=== PATIENT | female | born 1985 | race Caucasian/White ===

== ENCOUNTER 2017-05-04 09:28 | Emergency (ER) | payer SELFPAY ==
[~2017-05-04] VITALS: Ht 175.3 cm; Wt 77.3 kg
[~2017-05-04 09:28] MED LIST: DOCU-41 PO; HYDR-4003 PO; IBUP-1827 PO; PREN1TAB25 PO
[2017-05-04 09:31] VITALS: BP 108/73; PULSE 96; RESP 18; O2SAT 98
[2017-05-04 10:07] LABS: BASOPHILS % (AUTO) 0.2 % (0-3); EOSINOPHILS % (AUTO) 2.7 % (0-5); MONOCYTES % (AUTO) 9.2 % (4-12); Mean Corpuscular Hemoglobin 27.1 pg (27.0-35.0); Mean Corpuscular Volume 85.4 fL (81-100); NEUTROPHILS % (AUTO) 64.9 % (40-74); Platelet Count 274 bil/L (150-400)
--- NOTE | 2017-05-04 10:20 | ED.REPORT ---
HPI-Abd Pain F Under 40 Date of Service May 04, 2017 ED Provider: Kory Gil MD Patient is a 31 year old female who presents to the ED complaining of a headache onset this morning. Associated symptoms include nausea, vomiting, diarrhea, dizziness, generalized weakness, malaise and a subjective fever. She denies abdominal pain, cough, congestion, hematochezia or hematemesis. The patient reports that she has not been on any recent antibiotics or around anyone else who is sick. She states that she has been experiencing migraines but that this does not feel the same as her normal headache. Patient has never experienced this before. The patient states that she did eat chicken last night. Nursing Notes Stated Complaint: DIZZINESS/ VOMITING Chief Complaint: Female Abdominal Pain Nursing Notes Reviewed: Yes Allergies: Coded Allergies: No Known Drug Allergies (Verified Allergy, Unknown, 06/02/14) Scheduled Docusate Sodium (Colace) 100 Mg Capsule 100 MG PO BID Vit#96/Ferrous Fum/FA ( Tablet) 1 Each Tablet 1 EACH PO DAILY Scheduled PRN Hydrocodone-Acetaminophen 5-325 mg (Hydrocodone-Acetaminophen 5-325 mg) 1 Each Tablet 1-2 TABLET PO Q4H PRN PRN For Pain Ibuprofen (Ibuprofen) 600 Mg Tablet 600 MG PO Q6H PRN PRN For Mild Pain Ondansetron ODT (Zofran ODT) 4 Mg Tablet 4 MG PO Q4H PRN PRN For Nausea General Time Seen by MD: 09:50 Chief Complaint Other (headache) Hx Obtained From: Patient Arrived By: Walk-in Sudden in Onset?: Yes Onset Occurred: 1 - 4 hours ago Symptom Duration: Since onset Severity: Current: Moderate Similar Sx Previous: No Past Medical History Past Medical History pancreatitis cholelithiasis Smoking History Never Smoker Social History Other Social History: Good social support Ambulatory Status Independent Review of Systems Constitutional: Reports: Fever (subjective), Malaise, Weakness - generalized, Denies: Chills Respiratory: Denies: Non-productive cough, Shortness of breath GI: Reports: Diarrhea, Nausea, Vomiting, Denies: Abdominal pain, Hematemesis, Hematochezia Female: Denies: Complete sys rev & neg: except as marked. Ears / Nose / Throat: Denies: Nasal congestion Skin: Denies Itching, Denies Rash Neurologic: Reports: Dizziness, Headache Physical Exam Initial Vital Signs Vital Signs (First) Date Time Temp Pulse Resp B/P Pulse Ox O2 Delivery O2 Flow Rate FiO2 05/04/17 09:31 36.5 96 18 108/73 98 05/04/17 13:10 Room Air Initial VS: Reviewed General/Constitutional: Awake, Alert Behavior: Positive: Tearful Respiratory / Chest: Atraumatic, Breath sounds NL, Breath sounds = bilat, No respiratory distress Cardiovascular: Heart rate NL, Regular rhythm, Heart sounds NL, No murmurs Abdomen: Atraumatic, Soft, Non-tender, BS normoactive Back: Atraumatic, No CVA tenderness Head / Eyes: Atraumatic, Normocephalic, PERRL, EOMI Skin: Atraumatic, Color NL, No rash, Warm, Dry Neurologic: Oriented X3, Speech NL, No motor deficits, No sensory deficits Upper Extremity / MS: Atraumatic, Full range of motion Psychiatric: Affect NL, Mood NL Interpretation & Diagnostics Lab Results Interpretation Result Diagram: 05/04/17 1000 05/04/17 1000 Test 05/04/17 10:00 05/04/17 10:15 05/04/17 13:48 White Blood Count 6.6th/mm3 (3.8-10.1) Red Blood Count 5.01mil/mm3 (3.90-5.20) Hemoglobin 13.6g/dL (12.0-15.6) Hematocrit 42.8% (35.0-46.0) Mean Corpuscular Volume 85.4fL (81-100) Mean Corpuscular Hemoglobin 27.1pg (27.0-35.0) Mean Corpuscular Hemoglobin Concent 31.8% (32.0-37.0) Red Cell Distribution Width 14.3% (12.3-15.4) Platelet Count 274bil/L (150-400) Neutrophils (%) (Auto) 64.9% (40-74) Lymphocytes (%) (Auto) 22.7% (14-46) Monocytes (%) (Auto) 9.2% (4-12) Eosinophils (%) (Auto) 2.7% (0-5) Basophils (%) (Auto) 0.2% (0-3) Sodium Level 137mEq/L (134-144) Potassium Level 4.3mEq/L (3.5-5.2) Chloride Level 103mEq/L (97-108) Carbon Dioxide Level 22mmol/L (18-29) Blood Urea Nitrogen 9mg/dL (6-20) Creatinine 0.93mg/dL (0.57-1.00) Estimat Glomerular Filtration Rate 99mL/min (>59) Glucose Level 130mg/dL (60-99) Calcium Level 9.1mg/dL (8.5-10.1) Magnesium Level 1.9mg/dL (1.6-2.6) Total Bilirubin 0.2mg/dL (0.0-1.2) Aspartate Amino Transf (AST/SGOT) 12U/L (0-50) Alanine Aminotransferase (ALT/SGPT) 10U/L (0-32) Alkaline Phosphatase 67U/L (25-150) Total Protein 7.4g/dL (6.4-8.4) Albumin 4.4g/dL (3.4-5.0) Lipase 24U/L (13-60) Hold Maria Top Tube Received (Received) Hold Urine Received (Received) Re-Eval/Medical Decision Med Decision/Clinical Course Med Decision/Clinical Course: 31-year-old female presenting complaining of nausea vomiting diarrhea since earlier today. Nonbloody nonbilious. Vital signs are stable. She patient felt much better after IV fluids. Her labs are unremarkable. Urine is negative for infection. Likely viral cannot rule out food poisoning. Patient's abdominal exam was benign and she did not complain of abdominal pain while she was here. She will be discharged with Zofran and plans to follow up with primary doctor 1-2 days, return precautions given. Re-Evaluation/Progress : Time of Eval: 11:36 Re-Evaluation/Progress Note: Discussed labs and plan for discharge pending urinalysis. Patient understands and agrees to plan. All questions were addressed. Counseled Regarding: Diagnosis, Lab results, Need for follow-up, When/why to return to ED Discharge & Departure Primary Impression: Gastroenteritis Disposition: Home Discharge Condition All VS Reviewed: Yes Condition: Stable Patient Instructions: Gastroenteritis (ED) Additional Instructions: Your labs were normal and reassuring. You can take Tylenol as needed for pain. You should start to feel better within the next day or two. Take 1 Zofran every 4 hours as needed for nausea. Be sure to drink plenty of fluids (like Pedialyte or Gatorade) Start off with a bland diet (applesauce, oatmeal, etc) before progressing back to your normal diet. Wash your hands often so that you prevent your kids from getting sick as well. Follow up with your primary care physician next week. Return to the emergency department if you develop any new or concerning symptoms including inability to keep any food down or increasing abdominal pain. Referrals: Racheal Colón (PCP) Lydia Attestation Portions of this note were transcribed by Zelda Mao . I, Dr. Gil personally performed the history, physical exam and medical decision-making; I reviewed and confirmed the accuracy of the information in the transcribed note. Signed by:Lydia Fuller, 05/04/17 copies to: Racheal Colón Ben M MD May 04, 2017 10:20 Lisa Mao May 04, 2017 10:27
[2017-05-04] MEDS ORDERED: 0.9% Sodium Chloride 1,000 ML IV ONE ×2 (10:27→12:30)
[2017-05-04 10:30] LABS: Magnesium 1.9 mg/dL (1.6-2.6)
[2017-05-04] MEDS ORDERED: Ondansetron 2 mg/mL 2 mL Inj IVPUSH PRN (10:30)
[2017-05-04] MEDS ORDERED: ONDA4TAB9 PO (11:44)
[2017-05-04 13:10] VITALS: BP 99/46; PULSE 70; RESP 16; O2SAT 100
== END 2017-05-04 13:12 | disposition home or self-care (01) ==
LOC: SED 09:28
DX: K52.9 Noninfective gastroenteritis and colitis, unspecified (principal); R51 Headache
CPT/HCPCS: 36415; 80053; 81025; 83690; 83735; 85025; 96361; 96374; 96375; 99285; J1885; J2405; J7030